=== PATIENT | female | born 1950 | race Caucasian/White ===

== ENCOUNTER 2024-11-16 21:08 | Emergency (ER) | payer MEDICARE, OTHER, SELFPAY ==
[2024-11-16] VITALS (29 sets, daily range): BP systolic 126–188; BP diastolic 65–94; PULSE 65–85; RESP 13–29; O2SAT 93–100
--- NOTE | 2024-11-16 21:00 | RT.EKG_ITS ---
APPROVED REPORT Exam: Resting ECG Reason for Exam: fall, head injury Patient Location: E HR:69 bpm ECG Measurements Heart Rate 69 AXIS UT 263 P 44 QRSd 103 QRS 42 QT 419 T 26 QTc 448 Conclusion Sinus rhythm...normal P axis, V-rate 60- 99 Prolonged UT interval...UT >220, V-rate 50- 90
--- NOTE | 2024-11-16 21:15 | DI.CT_ITS ---
Exam(s) CT HEAD CERV SPINE FACIAL WO EXAM: CT HEAD CERV SPINE FACIAL WO CLINICAL HISTORY: fall, head trauma. TECHNIQUE: Imaging Protocol: Axial computed tomography images with coronal and sagittal reformatted images were created and reviewed COMPARISON: No exams were available for comparison FINDINGS: CT BRAIN: There is posterior moderate size left parietal scalp hematoma. There is a fracture extending through the left mastoid air cells towards the left middle ear cavity. There is fluid in these mastoid air cells as well as in the left middle ear cavity and there is also abnormal density consistent with fluid in the left external auditory canal. There is also some flui d evident within the left sphenoid sinus bringing to mind possibility of further extension of skull b ase fracture although there is no obvious fracture line in the skin clivus/basiocciput. There is yulisa e gas evident within the left dural sinus adjacent to the fracture site, this suggesting potential va scular injury in this region. There is subarachnoid blood evident in the right frontal lobe and right temporal lobe in the right mi ddle cranial fossa. Also some gyral petechial hemorrhage in these regions also suspected. There is no evidence of hemorrhage in left side of the brain nor within the posterior fossa. There is no bloo d within the nondilated ventricular system. CT MAXILLOFACIAL BONES: No evidence of orbital blowout fracture. No evidence of nasal bone fracture. No evidence of mandibl e fracture. Zygomatic arches are intact. No fluid in the maxillary and frontal sinuses but there is some fluid in left side of the sphenoid sinus which is high density and suspicious for blood. Orbits appear unremarkable. CT CERVICAL SPINE: There is no evidence of fracture nor listhesis. No significant prevertebral soft tissue swelling. T here is chronic disc space narrowing in at C5 5-6.. No listhesis. There is minimal facet arthropath y. No facet malalignment evident. No lytic osseous lesions evident. There is a sclerotic density in the pedicle of T1 which is probabl y a benign bone island. No other similar osseous findings. IMPRESSION: There is a left skull base fracture extending through the left mastoid air cells and into the left sk ull base with high density fluid-probable blood in the left sphenoid sinus, this in addition to fluid in the left mastoid air cells, left external auditory canal, and left middle ear cavity. There is a lso some gas evident in the region of the left sigmoid sinus which brings to mind the possibility of dural sinus injury and other possible vascular injury. There is subarachnoid and possible gyral petechial hemorrhage in the right frontal and right temporal lobe regions. No evidence of cervical spine fracture, malalignment, nor acute compromise of the cervical spinal can al. Preliminary virtual Radiology report was reviewed RADIATION DOSE DELIVERED: 1,936.6mGy.cm Total DLP DATA REPOSITORY: All CT scans at this facility are submitted to the National Radiology Data Registry (NRDR) Dose Index Registry (DIR) with the [employer] ([employer]). RADIATION OPTIMIZATION: All CT scans at this facility use at least one of these dose optimization te chniques: automated exposure control; mA and/or kV adjustment per patient size (includes targeted exa ms where dose is matched to clinical indication); or iterative reconstruction.
--- NOTE | 2024-11-16 21:22 | W.ED.GENAD ---
Discharge Plan Disposition Specific Acute Inpt Facility: [facility] Condition: Serious Discharge Details Chief Complaint: Trauma Clinical Impression: Intracranial hemorrhage, Basilar skull fracture, Fracture of right orbital wall Primary Care Provider: Unknown,Unknown ED Provider: Andres Moscoso [facility] General Mode of arrival: EMS. Date/Time Provider Initiated Documentation: 11/16/24 21:13. Limitations to Documentation: no limitations. Information obtained by: patient. History of Present Illness 74 year old F presents to the emergency department with the chief complaint of fall, head trauma, described as moderate, and is localized to the head. Patient reports no radiation. Patient started experiencing this hour(s) (1) and it has been constant. No relieving factors improve symptom(s), No exacerbating factors reported . Patient notes denies chest pain, nausea/vomiting and shortness of breath. Patient did receive the following treatments prior to arrival, none General Stated Complaint: Trauma CHRISTOPHER: 2 Review of Systems All systems reviewed & are unremarkable except as noted in HPI and below Constitutional Constitutional: Denies chills, Denies fever(s) and Denies weakness Cardiovascular Cardiovascular: Denies chest pain and Denies dyspnea Respiratory Respiratory: Denies cough and Denies dyspnea Gastrointestinal Gastrointestinal: Denies abdominal pain, Denies nausea and Denies vomiting Neurologic Neurologic: Denies weakness Psychiatric Psychiatric: Denies depression Exam Const General: no acute distress Orientation: alert [facility] Head: no palpable skull fracture General nose exam: external nose normal Mouth: moist mucous membranes Eyes General: appearance normal, both eyes and all related structures Neck Neck: normal visual inspection Resp Effort & Inspection: normal respiratory effort and able to speak in complete sentences Cardio Rate: regular rate Skin General skin exam: no rashes or lesions noted Neuro General: patient alert and patient oriented x3 Extrem General: normal to inspection Psych Mental Status: mental status grossly normal Course Vital Signs Vital signs: Vital Signs Pulse 77 11/16/24 21:12 Respiratory Rate 25 H 11/16/24 21:12 Blood Pressure 135/94 H 11/16/24 21:12 Pulse Oximetry 98 11/16/24 21:12 Pulse 77 11/16/24 21:12 Respiratory Rate 25 H 11/16/24 21:12 Blood Pressure 135/94 H 11/16/24 21:12 Blood Pressure Position Supine 11/16/24 21:12 Pulse Oximetry 98 11/16/24 21:12 Oxygen Delivery Method Room Air 11/16/24 21:12 Oxygen Flow Rate 0 11/16/24 21:12 Medical Decision Making 74-year-old female with a history of cognitive impairment per the who is in town for graduation and normally lives in [place] comes in after she had had several glasses of wine tonight when outside in 2-3 steps hitting her head on the ground. She has not had any vomiting since the fall. She is alert and oriented x 4 on arrival. She does have blood draining out of the left ear but has a negative heel sign. She has pain in the posterior head and right lateral neck. She has no pain in her chest, abdomen or back. She has no pain in her extremities. Given the blood coming out of her left ear and her head trauma will obtain CT head, facial bones and C-spine. Also check CBC, CMP and ethyl alcohol level. Alcohol level 130, otherwise no significant findings on labs other than potassium of 3.0. CT shows right frontal subarachnoid hemorrhage and also has basilar skull fracture which is likely the cause of her bleeding in her left ear. I have placed a call for transfer to [facility] awaiting callback from trauma surgery. Also has a displaced right sided superior orbital wall fracture, she has no pain in her eye or restricted eye movements on exam. Spoke with trauma surgeon Dr. Flores who accepts to [facility], patient and updated. Differential Diagnosis Differential Diagnosis: Head trauma, hemotympanum Lab Data Lab results reviewed: Yes I reviewed the patient's lab results. ECG Data Attestation: I personally reviewed and interpreted this ECG (s) as follows: Prior ECG tracings: not available for review Interpretation: sinus rate of 69 pr 263 no stemi Quality:SDOH Health Related Social Needs: No Data to Display [facility] All Active Problems (Updated 11/16/24 @ 22:55 by Andres Moscoso MD) Fracture of right orbital wall (Acute) Basilar skull fracture (Acute) Intracranial hemorrhage (Acute) Social History Smoking risk assessment performed?: No
[2024-11-16 21:28] LABS: Abs Immature Grans 0.08 10^3/uL (0.0-0.06); Absolute Basophil Count 0.02 10^3/uL (0.0-0.2); Absolute Eosinophil Count 0.09 10^3/uL (0.0-0.7); Absolute Lymphocyte Count 2.53 10^3/uL (1.2-3.4); Absolute Monocyte Count 0.71 10^3/uL (0.1-0.8); Absolute Neutrophil Count 4.28 10^3/uL (1.2-6.7); Basophils % 0.3 %; Eosinophils % 1.2 %; HCT 35.5 % (36.0-46.0); HGB 12.2 g/dL (11.2-15.7); Lymphocytes % 32.8 %; MCH 30.7 pg (27.0-33.0); MCHC 34.4 % (32.0-36.0); MCV 89 fL (80-95); MPV 8.8 fL (8.0-11.0); Monocytes % 9.2 %; Neutrophils % 55.5 %; Platelet Count 242 10^3/uL (130-400); RBC 3.97 10^6/uL (3.93-5.22); RDW 11.4 % (11.7-14.6); RDW-SD 37.1 fL; WBC 7.71 10^3/uL (4.4-10.8)
[2024-11-16 21:50] LABS: ALT 30 U/L (14-59); AST 26 U/L (15-37); Albumin 3.5 g/dL (3.4-5.0); Alkaline Phosphatase 77 U/L (46-116); Anion Gap 13.1 mmol/L (3-11); BUN 17 mg/dL (7-18); Bilirubin, Total 0.2 mg/dL (0.2-1.0); CO2 24.9 mmol/L (21.0-32.0); CREATININE 0.6 mg/dL (0.55-1.02); Calcium 9.1 mg/dL (8.5-10.1); Chloride 101 mmol/L (98-107); ETHANOL BLOOD 134.9 mg/dL (<10); Estimated GFR 92.97 (mL/min/1.73m2); Glucose 121 mg/dL (74-106); Sodium 139 mmol/L (136-145); Total Protein 6.7 g/dL (6.4-8.2)
[2024-11-16 22:06] LABS: Bilirubin Negative (Negative); Blood Negative (Negative); Clarity Clear (Clear); Glucose 100 mg/dL (Negative); Ketones Negative (Negative); Leukocyte Esterase Negative (Negative); Nitrite Negative (Negative); Specific Gravity <= 1.005 (1.005-1.025); Urobilinogen 0.2 mg/dL (Up to 0.2); pH 5.5 (5-8)
[2024-11-16] MEDS: Ondansetron 4 MG/2 ML VIAL IVP ×2 (22:13→23:39)
[2024-11-16] MEDS: ACETAMINOPHEN 1,000 MG/100 ML BAG 400 MG (22:13)
--- NOTE | 2024-11-16 22:24 | DI.VRAD_ITS ---
Addendum created by Kiley Garcia MD on 11/16/2024 10:48:00 PM EDT: Please note that there is a displaced right-sided superior orbital wall fracture which is not described in the body of the report. This is best visualized on sagittal series 12/image 20. There is no intraconal or intraorbital hematoma; however there is some overlying preorbital soft tissue swelling. Initial report created on 11/16/2024 10:23:55 PM EDT: PROCEDURE INFORMATION: Exam: CT Head Without Contrast Exam date and time: 11/16/2024 9:46 PM Age: 74 years old Clinical indication: Injury or trauma; Blunt trauma (contusions or hematomas); Consciousness not specified; Injury date: 11/16/24; Injury details: Fall, head trauma; Additional info: PT unable to hold still during exam. TECHNIQUE: Imaging protocol: Computed tomography of the head without contrast. Radiation optimization: All CT scans at this facility use at least one of these dose optimization techniques: automated exposure control; mA and/or kV adjustment per patient size (includes targeted exams where dose is matched to clinical indication); or iterative reconstruction. COMPARISON: No relevant prior studies available. FINDINGS: Brain: Subarachnoid hemorrhage is present within the right frontal lobe. Trace subarachnoid hemorrhage is also noted at the right temporal lobe. No mass effect. No midline shift. No intraparenchymal hemorrhage. Cerebral ventricles: No intraventricular hemorrhage. Paranasal sinuses: Mucosal thickening is present within the ethmoid air cells. High density fluid is present within the left sphenoid sinus suggesting the presence of blood. Mastoid air cells: A fracture extends through the left mastoid air cells into the external and middle left auditory canal. Auditory system: The left external auditory canal is filled with fluid and debris suggesting the presence of blood. Bones: Unremarkable. No acute fracture. Soft tissues: There is a moderate left parietal subgaleal hematoma. Vasculature: Gas is likely present within the left dural sinus adjacent to the fracture suggesting potential vascular injury in this region (series 4/image 40).. IMPRESSION: 1. Right frontal and temporal subarachnoid hemorrhage. No mass effect. 2. Left subgaleal hematoma with underlying left skull base fracture which extends into the external and middle left ear. Probable blood in the left external auditory canal. 3. Gas is noted within the left sigmoid sinus raising the suspicion for vascular injury. 4. High density fluid in the left sphenoid sinus suggesting the presence of blood. Findings raise the suspicion for an occult left sphenoid sinus fracture. PROCEDURE INFORMATION: Exam: CT Maxillofacial Without Contrast Exam date and time: 11/16/2024 9:46 PM Age: 74 years old Clinical indication: Injury or trauma; Blunt trauma (contusions or hematomas); Consciousness not specified; Injury date: 11/16/24; Injury details: Fall, head trauma; Additional info: PT unable to hold still during exam. TECHNIQUE: Imaging protocol: Computed tomography of the face without contrast. Radiation optimization: All CT scans at this facility use at least one of these dose optimization techniques: automated exposure control; mA and/or kV adjustment per patient size (includes targeted exams where dose is matched to clinical indication); or iterative reconstruction. COMPARISON: No relevant prior studies available. FINDINGS: Paranasal sinuses: High density fluid is present within the left sphenoid sinus suggesting the presence of blood. Mucosal thickening is present within the ethmoid air cells. Orbital cavities: Orbits are normal. Globes are unremarkable. Mastoid air cells: Displaced fracture of the left mastoid air cells which extends into the left auditory canal. Bones: Left skull base fracture. Soft tissues: Left subgaleal hematoma. IMPRESSION: Please see the associated findings on the CT of the head, attached. PROCEDURE INFORMATION: Exam: CT Cervical Spine Without Contrast Exam date and time: 11/16/2024 9:46 PM Age: 74 years old Clinical indication: Injury or trauma; Blunt trauma (contusions or hematomas); Consciousness not specified; Injury date: 11/16/24; Injury details: Fall, head trauma; Additional info: PT unable to hold still during exam. TECHNIQUE: Imaging protocol: Computed tomography of the cervical spine without contrast. Radiation optimization: All CT scans at this facility use at least one of these dose optimization techniques: automated exposure control; mA and/or kV adjustment per patient size (includes targeted exams where dose is matched to clinical indication); or iterative reconstruction. COMPARISON: No relevant prior studies available. FINDINGS: Bones: Moderate degenerative changes are present throughout the cervical spine including intervertebral disc space narrowing, endplate sclerosis and osteophytosis. Lungs: Lung apices are normal. Soft tissues: Left subgaleal hematoma. IMPRESSION: No acute findings. Degenerative change. THIS REPORT CONTAINS FINDINGS THAT MAY BE CRITICAL TO PATIENT CARE. The findings were verbally communicated via telephone conference with Andres Moscoso at 10:23 PM EST on 11/16/2024. The findings were acknowledged and understood. Dictated and Authenticated by: Kiley Garcia MD. Orderin Blanka Campos MD
[2024-11-16] MEDS: POTASSIUM CHLORIDE 10 MEQ/100 ML BAG 100 MEQ IV_INF (22:30)
--- NOTE | 2024-11-16 22:30 | DI.RAD_ITS ---
Exam(s) XR PORTABLE CHEST AP EXAM: XR PORTABLE CHEST AP CLINICAL HISTORY: fall. TECHNIQUE: 2D digital imaging was performed. COMPARISON: No exams were available for comparison FINDINGS: Single AP portable view. Heart size is upper normal. The mediastinum is not widened. Lungs are clear. No infiltrates nor obvious pleural effusions. IMPRESSION: No acute pulmonary findings on this single AP portable view of the chest. DATA REPOSITORY: RADIATION DOSE DELIVERED:
[2024-11-16] MEDS: fentaNYL 100 MCG/2 ML VIAL 50 MCG IVP (23:00)
[2024-11-16] MEDS: levETIRAcetam 2,000 MG in Normal Saline 100 ML 400 MG IVPB (23:02)
--- NOTE | 2024-11-16 23:38 | DI.VRAD_ITS ---
PROCEDURE INFORMATION: Exam: XR Chest Exam date and time: 11/16/2024 11:26 PM Age: 74 years old Clinical indication: Injury or trauma; Fall; Blunt trauma (contusions or hematomas); Injury date: 11/16/24 TECHNIQUE: Imaging protocol: Radiologic exam of the chest. Views: 1 view. COMPARISON: No relevant prior studies available. FINDINGS: Lungs: The lungs are clear. No consolidative radiopacities. Pleural spaces: No pleural effusion. No pneumothorax. Heart/Mediastinum: The heart is normal size. Bones/joints: Unremarkable. IMPRESSION: No acute cardiopulmonary findings. Dictated and Authenticated by: Kiley Garcia MD. Orderin Blanka Campos MD
== END 2024-11-16 23:52 | disposition short-term general hospital (02) ==
LOC: ER 21:49
PROVIDERS: Emergency Provider Emergency Medicine
DX: S02.102A Fracture of base of skull, left side, initial encounter for closed fracture; I62.9 Nontraumatic intracranial hemorrhage, unspecified; S02.85XA Fracture of orbit, unspecified, initial encounter for closed fracture; W19.XXXA Unspecified fall, initial encounter
CPT/HCPCS: 99285 ×2; 96375; 96376; 96372; 36415; 80053; 93005; 96365; 70450; 70486; 71045; 72125; 80320; 81003; 83735; 85025; 93010; J0131; J1953; J2405; J3010; J3480